=== PATIENT | male | born 1945 | race Caucasian/White ===

== ENCOUNTER 2018-06-20 05:21 | Day surgery (SDC) | payer OTHER ==
[~2018-06-20] VITALS: Ht 175.3 cm; Wt 102.1 kg
[~2018-06-20 05:21] MED LIST: ALLOPURINOL 10100 M1 PO; ARICEPT 5 MG TAB5 MG PO; BUSPIRONE HCL10 MG PO; CELEXA10 MG PO; HYDRALAZINE 5050 MG PO; LIPITOR80 MG PO; LISINOPRIL20 MG PO; NORCO 5-325 TA1 EACH PO; NOVOLOG FL100 UNIT/M SUBQ; PLAVIX 75 MG TA75 M1 PO; PROTONIX40 M1 PO; TRESIBA FL200 UNIT/1 SUBQ
[2018-06-20 07:20] VITALS: BP 166/78
== END 2018-06-20 09:07 | disposition home or self-care (01) ==
LOC: OR 05:21 → TBA 05:21 → OR 09:07
DX: M96.1 Postlaminectomy syndrome, not elsewhere classified (principal); M54.16 Radiculopathy, lumbar region; M47.896 Other spondylosis, lumbar region; I12.9 Hypertensive chronic kidney disease with stage 1 through stage 4 chronic kidney disease, or unspecified chronic kidney disease; E11.22 Type 2 diabetes mellitus with diabetic chronic kidney disease; N18.3 Chronic kidney disease, stage 3 (moderate); M10.9 Gout, unspecified; E78.5 Hyperlipidemia, unspecified; G47.33 Obstructive sleep apnea (adult) (pediatric); E04.9 Nontoxic goiter, unspecified; M19.90 Unspecified osteoarthritis, unspecified site; F32.9 Major depressive disorder, single episode, unspecified; F17.210 Nicotine dependence, cigarettes, uncomplicated; Z88.8 Allergy status to other drugs, medicaments and biological substances; Z79.4 Long term (current) use of insulin; Z79.899 Other long term (current) drug therapy; Z90.49 Acquired absence of other specified parts of digestive tract; Z90.5 Acquired absence of kidney; Z98.890 Other specified postprocedural states
CPT/HCPCS: 50010; 50101; 50386; 50417; 56524; 62110; 62850; 70005